=== PATIENT | male | born 1955 | race Caucasian/White ===

== ENCOUNTER 2023-06-13 11:26 | Inpatient (IN) | payer MEDICARE, OTHER ==
[~2023-06-13] VITALS: Ht 188 cm; Wt 73.0 kg
[2023-06-13] MEDS ORDERED: ONDANSETRON HCL/PF 4 MG/2 ML VIAL ONE (11:42)
[2023-06-13] MEDS ORDERED: ONDANSETRON HCL/PF 4 MG/2 ML VIAL IVP ONE (12:00)
[2023-06-13] MEDS ORDERED: IV NS 0.9% 1,000 ML BAG IV ONE (12:00)
[2023-06-13 12:02] LABS: BASOPHILS % (AUTO) 0.5 % (0.0-2.0); EOSINOPHILS # (AUTO) 0.1 K/uL (0.0-0.7); EOSINOPHILS % (AUTO) 0.8 % (0.0-6.0); HEMATOCRIT 40 % (39-51); HEMOGLOBIN 13.4 g/dL (13.5-17.5); LYMPHOCYTES # (AUTO) 0.9 K/uL (0.8-4.8); LYMPHOCYTES % (AUTO) 11.5 % (20.0-44.0); MEAN CORPUSCULAR HEMOGLOBIN 30 PG (26.0-33.0); MEAN CORPUSCULAR HGB CONC 34 g/dl (31.0-36.0); MEAN CORPUSCULAR VOLUME 90 fL (80-96); MONOCYTES # (AUTO) 0.7 K/uL (0.1-1.30); MONOCYTES % (AUTO) 8.5 % (2.0-12.0); NEUTROPHILS # (AUTO) 6.3 K/uL (1.8-8.9); NEUTROPHILS % (AUTO) 78.7 % (43.0-81.0); PLATELET COUNT (AUTO) 326 K/uL (150-450); RED BLOOD CELL COUNT(AUTO) 4.45 MIL/uL (4.5-6.0); RED CELL DISTRIBUTION WIDTH 14.3 % (11.5-15.0)
[2023-06-13] MEDS ORDERED: PANT40TA2 PO (12:07)
[2023-06-13] MEDS ORDERED: ONDA4TAB5 PO (12:07)
[2023-06-13] MEDS ORDERED: BISA10SU11 RC (12:07)
[2023-06-13] MEDS ORDERED: ASPI-1169 PO (12:07)
[2023-06-13] MEDS ORDERED: CHOL100043 PO (12:07)
[2023-06-13] MEDS ORDERED: LEVO75TA7 PO (12:07)
[2023-06-13] MEDS ORDERED: OMEG1CAP40 PO (12:07)
[2023-06-13] MEDS ORDERED: MEGE400O4 PO (12:07)
[2023-06-13 12:12] LABS: CALCIUM, SERUM 9.4 mg/dL (8.5-10.1); CREATININE 1.1 mg/dL (0.6-1.3); POTASSIUM 3.9 mmol/L (3.5-5.1)
[2023-06-13 12:17] LABS: INR 1.09 (0.91-1.10); PARTIAL THROMBOPLASTIN TIME 28.7 SEC (24.3-34.3); PROTHROMBIN TIME 11.5 SECS (9.2-11.1)
[2023-06-13 12:21] LABS: ALBUMIN 3.6 g/dL (3.4-5.0); BILIRUBIN,DIRECT 0.3 mg/dL (0.0-0.2); TOTAL PROTEIN, SERUM 8.5 g/dL (6.4-8.2)
[2023-06-13] MEDS ORDERED: IV NS 0.9% 250 ML IV ONE (13:33)
[2023-06-13] MEDS ORDERED: CT SWABBABLE VALVE TRANS SET 1 EA INFUS.SET MC ONE (13:33)
[2023-06-13] MEDS ORDERED: IOHEXOL-300 100 ML VIAL IV ONE (13:33)
[2023-06-13] MEDS ORDERED: ACETAMINOPHEN 325 MG TABLET PO PRN (15:00)
[2023-06-13] MEDS ORDERED: ONDANSETRON HCL/PF 4 MG/2 ML VIAL IVP PRN (15:00)
[2023-06-13 16:00] VITALS: BP 98/57; TEMP 98.8; O2SAT 99
[2023-06-13 16:16] LABS: APPEARANCE,URINE CLEAR (CLEAR); BILIRUBIN,URINE 1+ (NEGATIVE); BLOOD, URINE TRACE-INTA Ery/uL (NEGATIVE); COLOR,URINE YELLOW (YELLOW); KETONES,URINE 2+ mg/dL (NEGATIVE); LEUKOCYTE ESTERASE ,URINE NEGATIVE (NEGATIVE); NITRITE, URINE NEGATIVE (NEGATIVE); PROTEIN,URINE NEGATIVE (NEGATIVE); UGLUCOSE NEGATIVE (NEGATIVE)
[2023-06-13 16:30] LABS: ADD URINE CULTURE NO; BACTERIA,URINE None seen /HPF (None Seen); SQUAMOUS EPITHELIAL CELL,UR 0-2 /HPF (None Seen); WBC,URINE 0-2 /HPF (0-3)
[2023-06-13] MEDS: IV D5/0.45 NACL 1,000 ML IV PRN (18:07)
[2023-06-13 20:00] VITALS: BP 108/58; TEMP 97.8; O2SAT 96
[2023-06-14 05:47] LABS: BASOPHILS % (AUTO) 0.7 % (0.0-2.0); EOSINOPHILS # (AUTO) 0.3 K/uL (0.0-0.7); EOSINOPHILS % (AUTO) 4.8 % (0.0-6.0); HEMATOCRIT 35 % (39-51); LYMPHOCYTES % (AUTO) 19.8 % (20.0-44.0); MEAN CORPUSCULAR HEMOGLOBIN 30 PG (26.0-33.0); MEAN CORPUSCULAR HGB CONC 34 g/dl (31.0-36.0); MEAN CORPUSCULAR VOLUME 89 fL (80-96); MONOCYTES # (AUTO) 0.7 K/uL (0.1-1.30); MONOCYTES % (AUTO) 13.6 % (2.0-12.0); NEUTROPHILS # (AUTO) 3.2 K/uL (1.8-8.9); NEUTROPHILS % (AUTO) 61.1 % (43.0-81.0); PLATELET COUNT (AUTO) 276 K/uL (150-450); RED BLOOD CELL COUNT(AUTO) 3.96 MIL/uL (4.5-6.0); RED CELL DISTRIBUTION WIDTH 14.2 % (11.5-15.0); WHITE BLOOD COUNT (AUTO) 5.2 K/uL (4.3-11.0)
[2023-06-14 07:40] LABS: CALCIUM, SERUM 8.8 mg/dL (8.5-10.1); CREATININE 0.8 mg/dL (0.6-1.3); MAGNESIUM 2.5 mg/dL (1.8-2.4); PHOSPHORUS 3.8 mg/dL (2.5-4.9); POTASSIUM 3.7 mmol/L (3.5-5.1)
[2023-06-14 08:00] VITALS: BP 97/60; TEMP 98.6; O2SAT 100
[2023-06-14] MEDS: PANTOPRAZOLE 40 MG VIAL IV SCH ×2 (08:59→09:01)
[2023-06-14 16:00] VITALS: BP 106/62; TEMP 97.6; O2SAT 94
[2023-06-14] MEDS ORDERED: SUCRALFATE 1 G/10 ML UDC GT SCH (17:30)
[2023-06-14 20:00] VITALS: BP 103/57; TEMP 97.7; O2SAT 100
[2023-06-14] MEDS: SUCRALFATE 1 G/10 ML UDC PO SCH (21:18)
[2023-06-15] VITALS: BP 91/61; TEMP 98.8; O2SAT 100
[2023-06-15 04:00] VITALS: BP 115/61; TEMP 98.8; O2SAT 100
[2023-06-15] MEDS: IV D5/0.45 NACL 1,000 ML IV PRN ×2 (04:33→21:43)
[2023-06-15 06:41] LABS: BASOPHILS % (AUTO) 0.7 % (0.0-2.0); EOSINOPHILS # (AUTO) 0.3 K/uL (0.0-0.7); HEMATOCRIT 34 % (39-51); HEMOGLOBIN 11.6 g/dL (13.5-17.5); LYMPHOCYTES % (AUTO) 17.1 % (20.0-44.0); MEAN CORPUSCULAR HEMOGLOBIN 31 PG (26.0-33.0); MEAN CORPUSCULAR HGB CONC 34 g/dl (31.0-36.0); MEAN CORPUSCULAR VOLUME 89 fL (80-96); MONOCYTES # (AUTO) 0.6 K/uL (0.1-1.30); MONOCYTES % (AUTO) 11.5 % (2.0-12.0); NEUTROPHILS # (AUTO) 3.7 K/uL (1.8-8.9); NEUTROPHILS % (AUTO) 65.7 % (43.0-81.0); PLATELET COUNT (AUTO) 257 K/uL (150-450); RED BLOOD CELL COUNT(AUTO) 3.79 MIL/uL (4.5-6.0); RED CELL DISTRIBUTION WIDTH 14.1 % (11.5-15.0); WHITE BLOOD COUNT (AUTO) 5.6 K/uL (4.3-11.0)
[2023-06-15 06:49] LABS: ALBUMIN 2.7 g/dL (3.4-5.0); BILIRUBIN,TOTAL 0.8 mg/dL (0.2-1.0); CALCIUM, SERUM 8.5 mg/dL (8.5-10.1); CREATININE 0.7 mg/dL (0.6-1.3); MAGNESIUM 2.2 mg/dL (1.8-2.4); PHOSPHORUS 3.1 mg/dL (2.5-4.9); POTASSIUM 3.6 mmol/L (3.5-5.1); TOTAL PROTEIN, SERUM 6.7 g/dL (6.4-8.2)
[2023-06-15 07:30] VITALS: BP 102/65; TEMP 98.4; O2SAT 97
[2023-06-15] MEDS: SUCRALFATE 1 G/10 ML UDC PO SCH ×4 (08:31→21:43)
[2023-06-15] MEDS: PANTOPRAZOLE 40 MG VIAL IV SCH (08:31)
[2023-06-15] MEDS ORDERED: PANTOPRAZOLE 40 MG/PACK PACK GT SCH (09:00)
[2023-06-15] MEDS: PANTOPRAZOLE 40 MG/PACK PACK PO SCH (09:00)
[2023-06-15] MEDS ORDERED: BISACODYL SUPP (10 MG) 10 MG/SUPP.RECT SUPP.RECT RC PRN (13:00)
[2023-06-15 16:00] VITALS: BP 139/60; TEMP 99; O2SAT 100
[2023-06-15 20:00] VITALS: BP 103/53; TEMP 98.2; O2SAT 98
[2023-06-16] VITALS: BP 112/83; TEMP 98.4; O2SAT 98
[2023-06-16 04:00] VITALS: BP 104/58; TEMP 98.1; O2SAT 97
[2023-06-16 06:03] LABS: BASOPHILS % (AUTO) 0.7 % (0.0-2.0); EOSINOPHILS # (AUTO) 0.3 K/uL (0.0-0.7); EOSINOPHILS % (AUTO) 6.5 % (0.0-6.0); HEMATOCRIT 33 % (39-51); HEMOGLOBIN 11.5 g/dL (13.5-17.5); LYMPHOCYTES # (AUTO) 0.8 K/uL (0.8-4.8); LYMPHOCYTES % (AUTO) 18.4 % (20.0-44.0); MEAN CORPUSCULAR HEMOGLOBIN 31 PG (26.0-33.0); MEAN CORPUSCULAR HGB CONC 35 g/dl (31.0-36.0); MEAN CORPUSCULAR VOLUME 88 fL (80-96); MONOCYTES # (AUTO) 0.6 K/uL (0.1-1.30); MONOCYTES % (AUTO) 13.7 % (2.0-12.0); NEUTROPHILS # (AUTO) 2.5 K/uL (1.8-8.9); NEUTROPHILS % (AUTO) 60.7 % (43.0-81.0); PLATELET COUNT (AUTO) 256 K/uL (150-450); RED BLOOD CELL COUNT(AUTO) 3.76 MIL/uL (4.5-6.0); RED CELL DISTRIBUTION WIDTH 14.2 % (11.5-15.0); WHITE BLOOD COUNT (AUTO) 4.2 K/uL (4.3-11.0)
[2023-06-16 06:44] LABS: CALCIUM, SERUM 8.5 mg/dL (8.5-10.1); CREATININE 0.7 mg/dL (0.6-1.3); MAGNESIUM 2.2 mg/dL (1.8-2.4); PHOSPHORUS 3.3 mg/dL (2.5-4.9); POTASSIUM 3.6 mmol/L (3.5-5.1)
[2023-06-16 07:00] VITALS: BP 96/55; TEMP 97.5; O2SAT 99
[2023-06-16] MEDS ORDERED: LEVOTHYROXINE SODIUM 75 MCG TABLET PO SCH (07:30)
[2023-06-16] MEDS: PANTOPRAZOLE 40 MG/PACK PACK PO SCH (08:28)
[2023-06-16] MEDS: SUCRALFATE 1 G/10 ML UDC PO SCH ×2 (08:28→12:56)
[2023-06-16] MEDS ORDERED: CHOLECALCIFEROL 1,000 UNIT TABLET (VIT D3) PO SCH (09:00)
[2023-06-16] MEDS ORDERED: ASPIRIN 81 MG TAB.CHEW PO SCH (09:00)
[2023-06-16] MEDS ORDERED: Medication Not On Formulary EA (Omega-3 Fatty Acids/Fish Oil (Omega 3 1,000 Mg Softgel) PO SCH (09:00)
[2023-06-16] MEDS ORDERED: MEGESTROL ACETATE SUSP 400 MG/10 ML UDC PO SCH (09:00)
[2023-06-16] MEDS ORDERED: SUCR1ORA6 PO (12:43)
== END 2023-06-16 16:30 | DRG 392 ==
LOC: ER 11:40 → MED 14:56 → TELE 06-14 13:33 → MED 06-16 10:54
PROVIDERS: ATTEND Student in an Organized Health Care Education/Training Program
PROC: 0DB58ZX Excision of Esophagus, Via Natural or Artificial Opening Endoscopic, Diagnostic (ICD-10-PCS; principal; 2023-06-14)
DX: K20.90 Esophagitis, unspecified without bleeding (principal); F02.A3 Dementia in other diseases classified elsewhere, mild, with mood disturbance; Z20.822 Contact with and (suspected) exposure to COVID-19; G30.9 Alzheimer's disease, unspecified; F31.9 Bipolar disorder, unspecified; F25.9 Schizoaffective disorder, unspecified; Z85.820 Personal history of malignant melanoma of skin; Z79.890 Hormone replacement therapy; Z79.82 Long term (current) use of aspirin; Z79.899 Other long term (current) drug therapy; Z98.890 Other specified postprocedural states; R79.89 Other specified abnormal findings of blood chemistry; K57.90 Diverticulosis of intestine, part unspecified, without perforation or abscess without bleeding; I10 Essential (primary) hypertension; E11.9 Type 2 diabetes mellitus without complications; K44.9 Diaphragmatic hernia without obstruction or gangrene; K82.8 Other specified diseases of gallbladder; K29.70 Gastritis, unspecified, without bleeding; R13.10 Dysphagia, unspecified
CPT/HCPCS: 36415; 71260-TC; 80048-TC; 80053-TC; 80076-TC; 81001; 83605-TC; 83690-TC; 83735-TC; 84100-TC; 85025-TC; 85730-TC; 87081-TC; 88305-TC; 88313-TC; C9113; C9803; G0378; J2405; J2704; J3490; J7030; J7050; Q9967

== ENCOUNTER 2023-07-21 15:53 | Emergency (ER) | payer MEDICARE, OTHER ==
[~2023-07-21] VITALS: Ht 188 cm; Wt 83.5 kg
[~2023-07-21 15:53] MED LIST: ASPI-1169 PO; BISA10SU11 RC; CHOL100043 PO; LEVO75TA7 PO; MEGE400O4 PO; OMEG1CAP40 PO; ONDA4TAB5 PO; PANT40TA2 PO; SUCR1ORA6 PO
[2023-07-21] MEDS ORDERED: FAMOTIDINE/PF INJ 20 MG/2 ML VIAL IV ONE ×2 (16:30→16:51)
[2023-07-21] MEDS ORDERED: MORPHINE SULFATE INJ 2 MG/ML DISP.SYRIN IV ONE (16:30)
[2023-07-21] MEDS ORDERED: ONDANSETRON HCL/PF 4 MG/2 ML VIAL IV ONE (16:30)
[2023-07-21 16:46] LABS: BASOPHILS # (AUTO) 0.1 K/uL (0.0-0.2); BASOPHILS % (AUTO) 0.7 % (0.0-2.0); EOSINOPHILS # (AUTO) 0.2 K/uL (0.0-0.7); HEMATOCRIT 35 % (39-51); HEMOGLOBIN 11.9 g/dL (13.5-17.5); LYMPHOCYTES # (AUTO) 0.9 K/uL (0.8-4.8); LYMPHOCYTES % (AUTO) 11.7 % (20.0-44.0); MEAN CORPUSCULAR HEMOGLOBIN 30 PG (26.0-33.0); MEAN CORPUSCULAR HGB CONC 34 g/dl (31.0-36.0); MEAN CORPUSCULAR VOLUME 88 fL (80-96); MONOCYTES # (AUTO) 0.9 K/uL (0.1-1.30); MONOCYTES % (AUTO) 11.1 % (2.0-12.0); NEUTROPHILS # (AUTO) 5.8 K/uL (1.8-8.9); NEUTROPHILS % (AUTO) 73.5 % (43.0-81.0); PLATELET COUNT (AUTO) 507 K/uL (150-450); RED BLOOD CELL COUNT(AUTO) 3.95 MIL/uL (4.5-6.0); RED CELL DISTRIBUTION WIDTH 14.1 % (11.5-15.0); WHITE BLOOD COUNT (AUTO) 7.9 K/uL (4.3-11.0)
[2023-07-21] MEDS ORDERED: ONDANSETRON HCL/PF 4 MG/2 ML VIAL ONE (16:50)
[2023-07-21] MEDS ORDERED: MORPHINE SULFATE INJ 4 MG/ML DISP.SYRIN ONE (16:51)
[2023-07-21 17:10] LABS: ALANINE AMINOTRANSFERASE 44 U/L (12-78); ALKALINE PHOSPHATASE 79 U/L (46-116); ASPARTATE AMINOTRANSFERASE 29 U/L (15-37); BILIRUBIN,DIRECT 0.3 mg/dL (0.0-0.2); BILIRUBIN,TOTAL 0.6 mg/dL (0.2-1.0); CALCIUM, SERUM 9.7 mg/dL (8.5-10.1); CARBON DIOXIDE 21 mmol/L (21-32); CHLORIDE 103 mmol/L (98-107); GLUCOSE 94 mg/dL (74-106); LIPASE 23 U/L (16-77); POTASSIUM 3.3 mmol/L (3.5-5.1); SODIUM SERUM 139 mmol/L (136-145); TOTAL PROTEIN, SERUM 8.6 g/dL (6.4-8.2); UREA NITROGEN, BLOOD 22 mg/dL (7-18)
[2023-07-21 18:35] LABS: APPEARANCE,URINE SLIGHTLY CLOUDY (CLEAR); BILIRUBIN,URINE 2+ (NEGATIVE); BLOOD, URINE TRACE-INTA Ery/uL (NEGATIVE); COLOR,URINE YELLOW (YELLOW); KETONES,URINE 1+ mg/dL (NEGATIVE); LEUKOCYTE ESTERASE ,URINE NEGATIVE (NEGATIVE); NITRITE, URINE NEGATIVE (NEGATIVE); PH,URINE 5.5 (5.0-8.0); PROTEIN,URINE 2+ mg/dl (NEGATIVE); UGLUCOSE NEGATIVE (NEGATIVE)
[2023-07-21 18:46] LABS: ADD URINE CULTURE NO; BACTERIA,URINE Few /HPF (None Seen); SQUAMOUS EPITHELIAL CELL,UR Few /HPF (None Seen); URINE AMORPHOUS URATE Few /HPF (None Seen); WBC,URINE 0-2 /HPF (0-3)
[2023-07-21 22:05] VITALS: BP 128/70; TEMP 98.4; O2SAT 99
== END 2023-07-21 20:00 | disposition home or self-care (01) ==
LOC: ER 15:54
DX: K44.9 Diaphragmatic hernia without obstruction or gangrene (principal); R11.2 Nausea with vomiting, unspecified; F03.90 Unspecified dementia, unspecified severity, without behavioral disturbance, psychotic disturbance, mood disturbance, and anxiety; E11.9 Type 2 diabetes mellitus without complications; Z79.899 Other long term (current) drug therapy
CPT/HCPCS: 99285; 74176; 96374; 71045; 96375; 93005; 85025; 80048; 87086; 83690; 80076; 81001; 36415; 84484; J2270; J3490; J2405

== ENCOUNTER 2023-07-23 18:35 | Inpatient (IN) | payer MEDICARE, OTHER ==
[~2023-07-23] VITALS: Ht 188 cm; Wt 64.9 kg
[2023-07-23 19:24] LABS: BASOPHILS % (AUTO) 0.3 % (0.0-2.0); EOSINOPHILS % (AUTO) 0.2 % (0.0-6.0); HEMATOCRIT 37 % (39-51); HEMOGLOBIN 12.3 g/dL (13.5-17.5); LYMPHOCYTES # (AUTO) 0.6 K/uL (0.8-4.8); MEAN CORPUSCULAR HEMOGLOBIN 30 PG (26.0-33.0); MEAN CORPUSCULAR HGB CONC 34 g/dl (31.0-36.0); MEAN CORPUSCULAR VOLUME 89 fL (80-96); MONOCYTES # (AUTO) 0.9 K/uL (0.1-1.30); MONOCYTES % (AUTO) 7.2 % (2.0-12.0); NEUTROPHILS # (AUTO) 10.6 K/uL (1.8-8.9); NEUTROPHILS % (AUTO) 87.3 % (43.0-81.0); PLATELET COUNT (AUTO) 514 K/uL (150-450); RED BLOOD CELL COUNT(AUTO) 4.14 MIL/uL (4.5-6.0); RED CELL DISTRIBUTION WIDTH 13.8 % (11.5-15.0); WHITE BLOOD COUNT (AUTO) 12.1 K/uL (4.3-11.0)
[2023-07-23] MEDS ORDERED: ONDANSETRON HCL/PF 4 MG/2 ML VIAL ONE (19:28)
[2023-07-23] MEDS ORDERED: PANTOPRAZOLE 40 MG VIAL ONE (19:28)
[2023-07-23] MEDS ORDERED: METOCLOPRAMIDE HCL 10 MG/2 ML VIAL ONE (19:28)
[2023-07-23] MEDS ORDERED: IV NS 0.9% 1,000 ML BAG IV ONE (19:30)
[2023-07-23] MEDS ORDERED: ONDANSETRON HCL/PF 4 MG/2 ML VIAL IVP ONE (19:30)
[2023-07-23] MEDS ORDERED: METOCLOPRAMIDE HCL 10 MG/2 ML VIAL IV ONE (19:30)
[2023-07-23] MEDS ORDERED: PANTOPRAZOLE 40 MG VIAL IV ONE (19:30)
[2023-07-23 20:41] LABS: CREATININE 1.2 mg/dL (0.6-1.3); POTASSIUM 3.3 mmol/L (3.5-5.1)
[2023-07-23 20:46] LABS: ALBUMIN 3.3 g/dL (3.4-5.0); BILIRUBIN,DIRECT 0.5 mg/dL (0.0-0.2); BILIRUBIN,TOTAL 0.9 mg/dL (0.2-1.0); TOTAL PROTEIN, SERUM 9.2 g/dL (6.4-8.2)
[2023-07-23 21:17] LABS: APPEARANCE,URINE CLEAR (CLEAR); BILIRUBIN,URINE 2+ (NEGATIVE); BLOOD, URINE NEGATIVE Ery/uL (NEGATIVE); COLOR,URINE YELLOW (YELLOW); KETONES,URINE 3+ mg/dL (NEGATIVE); LEUKOCYTE ESTERASE ,URINE NEGATIVE (NEGATIVE); NITRITE, URINE NEGATIVE (NEGATIVE); PH,URINE 5.5 (5.0-8.0); PROTEIN,URINE 2+ mg/dl (NEGATIVE); UGLUCOSE NEGATIVE (NEGATIVE)
[2023-07-23 21:27] LABS: ADD URINE CULTURE NO; BACTERIA,URINE RARE /HPF (None Seen); MUCUS,URINE Many /LPF (None Seen); RBC,URINE 0-2 /HPF (0-2); WBC,URINE 0-2 /HPF (0-3)
[2023-07-23 22:15] VITALS: BP 117/76; TEMP 98.1; O2SAT 99
[2023-07-23] MEDS ORDERED: ONDANSETRON HCL/PF 4 MG/2 ML VIAL IVP PRN (22:30)
[2023-07-23] MEDS ORDERED: ACETAMINOPHEN 325 MG TABLET PO PRN (22:30)
[2023-07-23] MEDS ORDERED: MAGNESIUM HYDROXIDE 30 ML UDC PO PRN (22:30)
[2023-07-23] MEDS ORDERED: MAG HYDROX/AL HYDROX/SIMETH 30 ML UDC PO PRN (22:30)
[2023-07-23] MEDS ORDERED: Z GUARD REMEDY 4 OZ OINT TP PRN (22:30)
[2023-07-23] MEDS: IV NS 0.9% 1,000 ML IV PRN (22:45)
[2023-07-23 23:29] VITALS: BP 117/76; TEMP 98.1; O2SAT 99
[2023-07-24] MEDS ORDERED: POTASSIUM CHLORIDE 20 MEQ TAB.PRT.SR PO ONE (00:30)
[2023-07-24 05:55] LABS: BASOPHILS % (AUTO) 0.1 % (0.0-2.0); EOSINOPHILS % (AUTO) 0.2 % (0.0-6.0); HEMATOCRIT 31 % (39-51); HEMOGLOBIN 10.4 g/dL (13.5-17.5); LYMPHOCYTES # (AUTO) 0.8 K/uL (0.8-4.8); MEAN CORPUSCULAR HEMOGLOBIN 30 PG (26.0-33.0); MEAN CORPUSCULAR HGB CONC 34 g/dl (31.0-36.0); MEAN CORPUSCULAR VOLUME 88 fL (80-96); MONOCYTES % (AUTO) 8.7 % (2.0-12.0); NEUTROPHILS # (AUTO) 9.8 K/uL (1.8-8.9); PLATELET COUNT (AUTO) 398 K/uL (150-450); RED BLOOD CELL COUNT(AUTO) 3.47 MIL/uL (4.5-6.0); RED CELL DISTRIBUTION WIDTH 13.9 % (11.5-15.0); WHITE BLOOD COUNT (AUTO) 11.7 K/uL (4.3-11.0)
[2023-07-24 06:32] LABS: CALCIUM, SERUM 8.6 mg/dL (8.5-10.1); CREATININE 0.9 mg/dL (0.6-1.3); MAGNESIUM 2.3 mg/dL (1.8-2.4); PHOSPHORUS 3.6 mg/dL (2.5-4.9)
[2023-07-24] MEDS: PANTOPRAZOLE 40 MG TABLET.DR PO SCH (07:48)
[2023-07-24] MEDS: LEVOTHYROXINE SODIUM 75 MCG TABLET PO SCH (07:48)
[2023-07-24 08:00] VITALS: BP 127/75; TEMP 98; O2SAT 94
[2023-07-24 15:51] LABS: CREATININE, URINE 182.6 MG/DL (30.0-125.0); URINE TOTAL PROTEIN 49.9 mg/dL (0-11.9)
[2023-07-24 16:01] VITALS: BP 96/66; TEMP 97.9; O2SAT 98
[2023-07-24 22:35] VITALS: BP 98/56; TEMP 98.1; O2SAT 95
[2023-07-24] MEDS: IV NS 0.9% 1,000 ML IV PRN (23:14)
[2023-07-25 06:46] LABS: ALBUMIN 2.3 g/dL (3.4-5.0); BILIRUBIN,TOTAL 0.9 mg/dL (0.2-1.0); CALCIUM, SERUM 8.7 mg/dL (8.5-10.1); CREATININE 0.9 mg/dL (0.6-1.3); MAGNESIUM 2.1 mg/dL (1.8-2.4); PHOSPHORUS 3.3 mg/dL (2.5-4.9); POTASSIUM 3.6 mmol/L (3.5-5.1); TOTAL PROTEIN, SERUM 7.4 g/dL (6.4-8.2)
[2023-07-25 07:00] VITALS: BP 97/68; TEMP 99.1; O2SAT 98
[2023-07-25 07:02] LABS: THYROID STIMULATING HORMONE 0.495 uIU/mL (0.358-3.74)
[2023-07-25] MEDS: PANTOPRAZOLE 40 MG TABLET.DR PO SCH (07:55)
[2023-07-25] MEDS: LEVOTHYROXINE SODIUM 75 MCG TABLET PO SCH (07:55)
[2023-07-25] MEDS ORDERED: IV NS 0.9% 250 ML IV ONE (09:36)
[2023-07-25] MEDS ORDERED: CT SWABBABLE VALVE TRANS SET 1 EA INFUS.SET MC ONE (09:36)
[2023-07-25] MEDS ORDERED: IOHEXOL-300 100 ML VIAL IV ONE (09:36)
[2023-07-25] MEDS: IV NS 0.9% 1,000 ML IV PRN (14:13)
[2023-07-25 16:00] VITALS: BP 98/60; TEMP 98.4; O2SAT 95
[2023-07-25 20:00] VITALS: BP 111/69; TEMP 98.3; O2SAT 100
[2023-07-25 21:06] LABS: BASOPHILS % (AUTO) 0.4 % (0.0-2.0); EOSINOPHILS # (AUTO) 0.3 K/uL (0.0-0.7); EOSINOPHILS % (AUTO) 5.4 % (0.0-6.0); HEMATOCRIT 28 % (39-51); HEMOGLOBIN 9.4 g/dL (13.5-17.5); LYMPHOCYTES # (AUTO) 0.9 K/uL (0.8-4.8); LYMPHOCYTES % (AUTO) 17.2 % (20.0-44.0); MEAN CORPUSCULAR HEMOGLOBIN 30 PG (26.0-33.0); MEAN CORPUSCULAR HGB CONC 34 g/dl (31.0-36.0); MEAN CORPUSCULAR VOLUME 87 fL (80-96); MONOCYTES # (AUTO) 0.6 K/uL (0.1-1.30); NEUTROPHILS # (AUTO) 3.5 K/uL (1.8-8.9); PLATELET COUNT (AUTO) 324 K/uL (150-450); RED BLOOD CELL COUNT(AUTO) 3.15 MIL/uL (4.5-6.0); RED CELL DISTRIBUTION WIDTH 13.7 % (11.5-15.0); WHITE BLOOD COUNT (AUTO) 5.2 K/uL (4.3-11.0)
[2023-07-25 21:30] LABS: IRON, SERUM 45 ug/dl (50-175); TOTAL IRON BINDING CAPACITY 152 ug/dl (250-450)
[2023-07-26] MEDS: IV NS 0.9% 1,000 ML IV PRN (02:03)
[2023-07-26 07:00] VITALS: BP 101/58; TEMP 98.4; O2SAT 96
[2023-07-26] MEDS: LEVOTHYROXINE SODIUM 75 MCG TABLET PO SCH (08:18)
[2023-07-26] MEDS: PANTOPRAZOLE 40 MG TABLET.DR PO SCH (08:18)
[2023-07-26] MEDS ORDERED: FERROUS SULFATE (325 MG) 325 MG/TAB TABLET PO SCH (13:00)
[2023-07-27 07:07] LABS: IMMUNOGLOBULIN A, SERUM 434 mg/dL (61-437); IMMUNOGLOBULIN G, SERUM 1102 mg/dL (603-1613); IMMUNOGLOBULIN M, SERUM 70 mg/dL (20-172)
[2023-07-27 10:07] LABS: *SPE A/G RATIO 0.7 (0.7-1.7); *SPE ALBUMIN 2.3 g/dL (2.9-4.4); *SPE ALPHA-1-GLOBULIN 0.3 g/dL (0.0-0.4); *SPE ALPHA-2-GLOBULIN 0.9 g/dL (0.4-1.0); *SPE GLOBULIN, TOTAL 3.3 g/dL (2.2-3.9); *SPE M-SPIKE Not Observed g/dL (Not Observed); *SPE PROTEIN TOTAL 5.6 g/dL (6.0-8.5); *SPEGAMMA GLOBULIN 1.1 g/dL (0.4-1.8)
[2023-07-27 11:07] LABS: FREE KAPPA LT CHAINS SERUM 64.1 mg/L (3.3-19.4); FREE LAMBDA LT CHAIN SERUM 41.7 mg/L (5.7-26.3); KAPPA/LAMBDA RATIO SERUM 1.54 (0.26-1.65)
== END 2023-07-26 15:05 | DRG 640 ==
LOC: ER 18:47 → MED 21:10
PROVIDERS: ADMIT Internal Medicine; ATTEND Nurse Practitioner Acute Care
DX: R62.7 Adult failure to thrive (principal); G93.41 Metabolic encephalopathy; N17.9 Acute kidney failure, unspecified; C15.9 Malignant neoplasm of esophagus, unspecified; R65.10 Systemic inflammatory response syndrome (SIRS) of non-infectious origin without acute organ dysfunction; F02.80 Dementia in other diseases classified elsewhere, unspecified severity, without behavioral disturbance, psychotic disturbance, mood disturbance, and anxiety; G30.9 Alzheimer's disease, unspecified; Z85.01 Personal history of malignant neoplasm of esophagus; Z85.828 Personal history of other malignant neoplasm of skin; Z79.890 Hormone replacement therapy; Z79.82 Long term (current) use of aspirin; Z79.899 Other long term (current) drug therapy; R13.10 Dysphagia, unspecified; D72.829 Elevated white blood cell count, unspecified; E03.9 Hypothyroidism, unspecified; D50.9 Iron deficiency anemia, unspecified; E11.9 Type 2 diabetes mellitus without complications; E86.9 Volume depletion, unspecified; E87.6 Hypokalemia; K57.90 Diverticulosis of intestine, part unspecified, without perforation or abscess without bleeding; K44.9 Diaphragmatic hernia without obstruction or gangrene
CPT/HCPCS: 36415; 71045-TC; 71260-TC; 80048-TC; 80053-TC; 80076-TC; 81001; 82378; 82570-TC; 82607-TC; 82728-TC; 82784; 83540-TC; 83690-TC; 83735-TC; 84100-TC; 84155; 84165; 84300-TC; 84443-TC; 85025-TC; 86334; A4223; C9113; G0378; J2405; J2765; J7030; J7050; Q9967

== ENCOUNTER 2023-07-29 15:21 | Inpatient (IN) | payer MEDICARE, OTHER ==
[~2023-07-29] VITALS: Ht 170.2 cm; Wt 66.2 kg
[~2023-07-29 15:21] MED LIST changes: -MEGE400O4 PO; -SUCR1ORA6 PO
[2023-07-29] MEDS ORDERED: BLOO-668 IN (15:52)
[2023-07-29] MEDS ORDERED: ACET-868 PO (15:52)
[2023-07-29] MEDS ORDERED: GLUC1KIT IM (15:52)
[2023-07-29] MEDS ORDERED: FERR325T28 PO (15:52)
[2023-07-29] MEDS ORDERED: FAMOTIDINE/PF INJ 20 MG/2 ML VIAL IV ONE (16:00)
[2023-07-29] MEDS ORDERED: ONDANSETRON HCL/PF 4 MG/2 ML VIAL IVP ONE (16:00)
[2023-07-29] MEDS ORDERED: ONDANSETRON HCL/PF 4 MG/2 ML VIAL ONE (16:06)
[2023-07-29 16:29] LABS: BASOPHILS % (AUTO) 0.7 % (0.0-2.0); EOSINOPHILS # (AUTO) 0.2 K/uL (0.0-0.7); EOSINOPHILS % (AUTO) 4.1 % (0.0-6.0); HEMATOCRIT 33 % (39-51); HEMOGLOBIN 11.2 g/dL (13.5-17.5); LYMPHOCYTES # (AUTO) 1.1 K/uL (0.8-4.8); LYMPHOCYTES % (AUTO) 22.2 % (20.0-44.0); MEAN CORPUSCULAR HEMOGLOBIN 30 PG (26.0-33.0); MEAN CORPUSCULAR HGB CONC 34 g/dl (31.0-36.0); MEAN CORPUSCULAR VOLUME 87 fL (80-96); MONOCYTES # (AUTO) 0.7 K/uL (0.1-1.30); MONOCYTES % (AUTO) 13.5 % (2.0-12.0); NEUTROPHILS # (AUTO) 2.9 K/uL (1.8-8.9); NEUTROPHILS % (AUTO) 59.5 % (43.0-81.0); PLATELET COUNT (AUTO) 365 K/uL (150-450); RED BLOOD CELL COUNT(AUTO) 3.74 MIL/uL (4.5-6.0); RED CELL DISTRIBUTION WIDTH 13.8 % (11.5-15.0); WHITE BLOOD COUNT (AUTO) 4.9 K/uL (4.3-11.0)
[2023-07-29 16:59] LABS: ALANINE AMINOTRANSFERASE 43 U/L (12-78); ALBUMIN 2.6 g/dL (3.4-5.0); ALKALINE PHOSPHATASE 78 U/L (46-116); ASPARTATE AMINOTRANSFERASE 34 U/L (15-37); BILIRUBIN,DIRECT 0.2 mg/dL (0.0-0.2); BILIRUBIN,TOTAL 0.4 mg/dL (0.2-1.0); CARBON DIOXIDE 25 mmol/L (21-32); CHLORIDE 101 mmol/L (98-107); CREATININE 0.8 mg/dL (0.6-1.3); GLUCOSE 83 mg/dL (74-106); LIPASE 35 U/L (16-77); POTASSIUM 3.1 mmol/L (3.5-5.1); SODIUM SERUM 138 mmol/L (136-145); TOTAL PROTEIN, SERUM 7.4 g/dL (6.4-8.2); UREA NITROGEN, BLOOD 11 mg/dL (7-18)
[2023-07-29] MEDS ORDERED: ONDANSETRON HCL/PF 4 MG/2 ML VIAL IVP PRN (17:00)
[2023-07-29] MEDS ORDERED: MORPHINE SULFATE INJ 2 MG/ML DISP.SYRIN IV PRN (17:00)
[2023-07-29 17:13] LABS: APPEARANCE,URINE CLEAR (CLEAR); BILIRUBIN,URINE 2+ (NEGATIVE); BLOOD, URINE TRACE-INTA Ery/uL (NEGATIVE); COLOR,URINE YELLOW (YELLOW); KETONES,URINE 3+ mg/dL (NEGATIVE); LEUKOCYTE ESTERASE ,URINE NEGATIVE (NEGATIVE); NITRITE, URINE NEGATIVE (NEGATIVE); PH,URINE 5.5 (5.0-8.0); PROTEIN,URINE TRACE mg/dl (NEGATIVE); UGLUCOSE NEGATIVE (NEGATIVE); UROBILINOGEN,URINE >=8.0 EU/dL (0.2)
[2023-07-29 18:07] LABS: WBC,URINE 0-2 /HPF (0-3)
[2023-07-29 18:08] LABS: ADD URINE CULTURE NO; BACTERIA,URINE None seen /HPF (None Seen); MUCUS,URINE Many /LPF (None Seen); SQUAMOUS EPITHELIAL CELL,UR 0-2 /HPF (None Seen)
[2023-07-29 18:54] VITALS: O2SAT 97
[2023-07-29] MEDS: IV D5/0.45 NACL 1,000 ML IV PRN (22:09)
[2023-07-30 07:00] VITALS: BP 95/53; TEMP 98.1; O2SAT 98
[2023-07-30 07:21] LABS: BASOPHILS % (AUTO) 1.1 % (0.0-2.0); EOSINOPHILS # (AUTO) 0.2 K/uL (0.0-0.7); EOSINOPHILS % (AUTO) 5.9 % (0.0-6.0); HEMATOCRIT 31 % (39-51); HEMOGLOBIN 10.7 g/dL (13.5-17.5); LYMPHOCYTES # (AUTO) 0.8 K/uL (0.8-4.8); LYMPHOCYTES % (AUTO) 19.1 % (20.0-44.0); MEAN CORPUSCULAR HEMOGLOBIN 30 PG (26.0-33.0); MEAN CORPUSCULAR HGB CONC 34 g/dl (31.0-36.0); MEAN CORPUSCULAR VOLUME 88 fL (80-96); MONOCYTES # (AUTO) 0.7 K/uL (0.1-1.30); MONOCYTES % (AUTO) 16.2 % (2.0-12.0); NEUTROPHILS # (AUTO) 2.4 K/uL (1.8-8.9); NEUTROPHILS % (AUTO) 57.7 % (43.0-81.0); PLATELET COUNT (AUTO) 329 K/uL (150-450); RED BLOOD CELL COUNT(AUTO) 3.55 MIL/uL (4.5-6.0); RED CELL DISTRIBUTION WIDTH 13.9 % (11.5-15.0); WHITE BLOOD COUNT (AUTO) 4.2 K/uL (4.3-11.0)
[2023-07-30] MEDS: LEVOTHYROXINE SODIUM 75 MCG TABLET PO SCH (07:30)
[2023-07-30 07:45] LABS: CALCIUM, SERUM 8.6 mg/dL (8.5-10.1); CREATININE 0.8 mg/dL (0.6-1.3); MAGNESIUM 1.9 mg/dL (1.8-2.4); PHOSPHORUS 4.4 mg/dL (2.5-4.9); POTASSIUM 3.1 mmol/L (3.5-5.1)
[2023-07-30] MEDS: PANTOPRAZOLE 40 MG VIAL IV SCH (09:45)
[2023-07-30] MEDS: POTASSIUM CL. PREMIX PERIPHER. 50 ML IV SCH ×4 (12:02→14:31)
[2023-07-30] MEDS: IV D5/0.45 NACL 1,000 ML IV PRN (12:02)
[2023-07-30 16:00] VITALS: BP 114/56; TEMP 98.4; O2SAT 99
[2023-07-30 16:05] VITALS: BP 144/88; TEMP 98.4; O2SAT 95
[2023-07-30] MEDS ORDERED: ANESTHESIA TRAY IN PYXIS 1 EA TRAY MC ONE (17:50)
[2023-07-30 20:00] VITALS: BP 110/72; TEMP 98.4; O2SAT 99
[2023-07-31 07:00] VITALS: BP 93/52; TEMP 97.5; O2SAT 97
[2023-07-31 07:31] LABS: BASOPHILS % (AUTO) 0.5 % (0.0-2.0); EOSINOPHILS # (AUTO) 0.2 K/uL (0.0-0.7); EOSINOPHILS % (AUTO) 2.4 % (0.0-6.0); HEMATOCRIT 30 % (39-51); HEMOGLOBIN 10.2 g/dL (13.5-17.5); LYMPHOCYTES # (AUTO) 0.8 K/uL (0.8-4.8); LYMPHOCYTES % (AUTO) 11.8 % (20.0-44.0); MEAN CORPUSCULAR HEMOGLOBIN 30 PG (26.0-33.0); MEAN CORPUSCULAR HGB CONC 34 g/dl (31.0-36.0); MEAN CORPUSCULAR VOLUME 89 fL (80-96); MONOCYTES # (AUTO) 0.8 K/uL (0.1-1.30); MONOCYTES % (AUTO) 11.8 % (2.0-12.0); NEUTROPHILS # (AUTO) 4.8 K/uL (1.8-8.9); NEUTROPHILS % (AUTO) 73.5 % (43.0-81.0); PLATELET COUNT (AUTO) 295 K/uL (150-450); RED BLOOD CELL COUNT(AUTO) 3.35 MIL/uL (4.5-6.0); RED CELL DISTRIBUTION WIDTH 13.6 % (11.5-15.0); WHITE BLOOD COUNT (AUTO) 6.5 K/uL (4.3-11.0)
[2023-07-31] MEDS: LEVOTHYROXINE SODIUM 75 MCG TABLET PO SCH (07:59)
[2023-07-31 08:20] LABS: ALBUMIN 2.3 g/dL (3.4-5.0); BILIRUBIN,TOTAL 0.5 mg/dL (0.2-1.0); CALCIUM, SERUM 8.3 mg/dL (8.5-10.1); CREATININE 0.7 mg/dL (0.6-1.3); MAGNESIUM 1.8 mg/dL (1.8-2.4); PHOSPHORUS 3.4 mg/dL (2.5-4.9); POTASSIUM 3.2 mmol/L (3.5-5.1); TOTAL PROTEIN, SERUM 6.5 g/dL (6.4-8.2)
[2023-07-31] MEDS: PANTOPRAZOLE 40 MG VIAL IV SCH (09:12)
[2023-07-31] MEDS ORDERED: JEVITY 1.2 CAL 1,000 ML BOTTLE GT SCH (15:30)
[2023-07-31 16:09] VITALS: BP 97/59; TEMP 97.6; O2SAT 96
[2023-07-31] MEDS ORDERED: JEVITY 1.2 CAL 1,000 ML BOTTLE GT PRN (17:30)
== END 2023-07-31 17:46 | DRG 376 ==
LOC: ER 15:24 → MED 21:30
PROC: 0DH63UZ Insertion of Feeding Device into Stomach, Percutaneous Approach (ICD-10-PCS; principal; 2023-07-30)
DX: C15.9 Malignant neoplasm of esophagus, unspecified (principal); R13.10 Dysphagia, unspecified; F02.80 Dementia in other diseases classified elsewhere, unspecified severity, without behavioral disturbance, psychotic disturbance, mood disturbance, and anxiety; G30.9 Alzheimer's disease, unspecified; E03.9 Hypothyroidism, unspecified; K29.70 Gastritis, unspecified, without bleeding; Z85.828 Personal history of other malignant neoplasm of skin; Z79.890 Hormone replacement therapy; Z79.899 Other long term (current) drug therapy; Z79.82 Long term (current) use of aspirin; K44.9 Diaphragmatic hernia without obstruction or gangrene; E11.9 Type 2 diabetes mellitus without complications; I10 Essential (primary) hypertension; K57.30 Diverticulosis of large intestine without perforation or abscess without bleeding
CPT/HCPCS: 36415; 43246; 71045-TC; 80048-TC; 80053-TC; 80076-TC; 81001; 83690-TC; 83735-TC; 84100-TC; 84484-TC; 85025-TC; 85730-TC; 86850-TC; A4223; C9113; G0378; J0690; J2405; J2704; J3480; J3490; J7030; J7050

== ENCOUNTER 2023-12-28 09:58 | Inpatient (IN) | payer MEDICARE, OTHER ==
[~2023-12-28] VITALS: Ht 157.5 cm; Wt 68.0 kg
[~2023-12-28 09:58] MED LIST changes: +ACET-868 PO; +BLOO-668 IN; +FERR325T28 GT; +GLUC1KIT IM; +LEVO75TA7 GT; -LEVO75TA7 PO
[2023-12-28] MEDS ORDERED: ONDANSETRON HCL/PF 4 MG/2 ML VIAL ONE (10:27)
[2023-12-28] MEDS ORDERED: MORPHINE SULFATE INJ 4 MG/ML DISP.SYRIN ONE (10:27)
[2023-12-28] MEDS: IV NS 0.9% 1,000 ML BAG IV ONE (10:30)
[2023-12-28] MEDS: ONDANSETRON HCL/PF 4 MG/2 ML VIAL IVP ONE (10:31)
[2023-12-28] MEDS: MORPHINE SULFATE INJ 2 MG/ML DISP.SYRIN IV ONE (10:32)
[2023-12-28 10:40] LABS: BASOPHILS # (AUTO) 0.2 K/uL (0.0-0.2); BASOPHILS % (AUTO) 2.2 % (0.0-2.0); EOSINOPHILS # (AUTO) 0.1 K/uL (0.0-0.7); EOSINOPHILS % (AUTO) 1.2 % (0.0-6.0); HEMATOCRIT 33 % (39-51); HEMOGLOBIN 10.5 g/dL (13.5-17.5); LYMPHOCYTES # (AUTO) 0.8 K/uL (0.8-4.8); LYMPHOCYTES % (AUTO) 6.8 % (20.0-44.0); MEAN CORPUSCULAR HEMOGLOBIN 28 PG (26.0-33.0); MEAN CORPUSCULAR HGB CONC 32 g/dl (31.0-36.0); MEAN CORPUSCULAR VOLUME 87 fL (80-96); MONOCYTES # (AUTO) 0.8 K/uL (0.1-1.30); MONOCYTES % (AUTO) 7.5 % (2.0-12.0); NEUTROPHILS # (AUTO) 9.2 K/uL (1.8-8.9); NEUTROPHILS % (AUTO) 82.3 % (43.0-81.0); PLATELET COUNT (AUTO) 405 K/uL (150-450); RED BLOOD CELL COUNT(AUTO) 3.78 MIL/uL (4.5-6.0); RED CELL DISTRIBUTION WIDTH 17.8 % (11.5-15.0); WHITE BLOOD COUNT (AUTO) 11.2 K/uL (4.3-11.0)
[2023-12-28 10:51] LABS: CALCIUM, SERUM 8.8 mg/dL (8.5-10.1); CREATININE 0.7 mg/dL (0.6-1.3); POTASSIUM 4.7 mmol/L (3.5-5.1)
[2023-12-28 10:54] LABS: INR 1.07 (0.91-1.10); PARTIAL THROMBOPLASTIN TIME 26.6 SEC (24.3-34.3)
[2023-12-28 10:57] LABS: ALBUMIN 2.8 g/dL (3.4-5.0); BILIRUBIN,DIRECT 0.2 mg/dL (0.0-0.2); BILIRUBIN,TOTAL 0.5 mg/dL (0.2-1.0); TOTAL PROTEIN, SERUM 8.4 g/dL (6.4-8.2)
[2023-12-28] MEDS: PANTOPRAZOLE 80 MG in IV NS 0.9% 500 ML IV ONE (11:00)
[2023-12-28 12:15] LABS: BAND % (MANUAL) 4 % (0.0-5.0); EOSINOPHILS % (MANUAL) 4 % (0-4); LYMPHOCYTES % (MANUAL) 10 % (16-48); METAMYELOCYTES % 1 % (0-0); MONOCYTES % (MANUAL) 10 % (0-11.0); NEUTROPHILS % (MANUAL) 71 (42-76)
[2023-12-28 12:16] LABS: PLATELET ESTIMATE ADEQUATE
[2023-12-28] MEDS ORDERED: NA P133E RC (13:33)
[2023-12-28] MEDS ORDERED: BUDE0.5A4 IH (13:33)
[2023-12-28] MEDS ORDERED: OMEP40CA21 GT (13:33)
[2023-12-28] MEDS ORDERED: BLOO-668 IN (13:33)
[2023-12-28] MEDS ORDERED: NUT.237L31 GT (13:33)
[2023-12-28] MEDS ORDERED: CALC355O18 GT (13:33)
[2023-12-28] MEDS ORDERED: IPRA4AER IH (13:33)
[2023-12-28] MEDS ORDERED: MAGN400O6 GT (13:33)
[2023-12-28] MEDS ORDERED: ONDA-97 GT (13:33)
[2023-12-28] MEDS ORDERED: CHOL200059 GT (13:33)
[2023-12-28] MEDS ORDERED: MAG HYDROX/AL HYDROX/SIMETH 30 ML UDC PO PRN (17:30)
[2023-12-28] MEDS ORDERED: MAGNESIUM HYDROXIDE 30 ML UDC PO PRN (17:30)
[2023-12-28] MEDS ORDERED: Z GUARD REMEDY 4 OZ OINT TP PRN (17:30)
[2023-12-28] MEDS ORDERED: ZOLPIDEM TARTRATE 5 MG TABLET PO PRN (17:30)
[2023-12-28] MEDS ORDERED: ACETAMINOPHEN 325 MG TABLET PO PRN (17:30)
[2023-12-28] MEDS ORDERED: ONDANSETRON HCL/PF 4 MG/2 ML VIAL IVP PRN (17:30)
[2023-12-28 18:13] LABS: HEMOGLOBIN 8.9 g/dL (13.5-17.5)
[2023-12-28] MEDS: IV D5/0.45 NACL 1,000 ML IV PRN (18:24)
[2023-12-28] MEDS ORDERED: DEXTROSE 50%-WATER 50 ML DISP.SYRIN IV PRN (19:00)
[2023-12-28 20:00] VITALS: BP 90/59; TEMP 99; O2SAT 90
[2023-12-28 20:42] VITALS: BP 90/59; TEMP 99; O2SAT 90
[2023-12-28] MEDS: BLOOD SUGAR DIAGNOSTIC 1 EACH STRIP IN SCH (23:06)
[2023-12-29 07:17] LABS: BASOPHILS % (AUTO) 0.4 % (0.0-2.0); EOSINOPHILS # (AUTO) 0.2 K/uL (0.0-0.7); HEMATOCRIT 27 % (39-51); HEMOGLOBIN 8.7 g/dL (13.5-17.5); LYMPHOCYTES # (AUTO) 0.7 K/uL (0.8-4.8); LYMPHOCYTES % (AUTO) 6.4 % (20.0-44.0); MEAN CORPUSCULAR HEMOGLOBIN 30 PG (26.0-33.0); MEAN CORPUSCULAR HGB CONC 33 g/dl (31.0-36.0); MEAN CORPUSCULAR VOLUME 90 fL (80-96); MONOCYTES # (AUTO) 1.2 K/uL (0.1-1.30); MONOCYTES % (AUTO) 11.9 % (2.0-12.0); NEUTROPHILS # (AUTO) 8.2 K/uL (1.8-8.9); NEUTROPHILS % (AUTO) 79.3 % (43.0-81.0); PLATELET COUNT (AUTO) 311 K/uL (150-450); RED BLOOD CELL COUNT(AUTO) 2.96 MIL/uL (4.5-6.0); RED CELL DISTRIBUTION WIDTH 17.9 % (11.5-15.0); WHITE BLOOD COUNT (AUTO) 10.3 K/uL (4.3-11.0)
[2023-12-29 08:00] VITALS: BP 98/55; TEMP 98.1; O2SAT 98
[2023-12-29 08:29] LABS: CREATININE 0.5 mg/dL (0.6-1.3); MAGNESIUM 2.4 mg/dL (1.8-2.4); POTASSIUM 4.3 mmol/L (3.5-5.1)
[2023-12-29] MEDS: PANTOPRAZOLE 40 MG VIAL IV SCH (08:51)
[2023-12-29 15:32] LABS: URINE SODIUM, RANDOM 114 mmol/l (40-220)
[2023-12-29 15:54] VITALS: BP 106/60; TEMP 98.6; O2SAT 94
[2023-12-29 20:00] VITALS: BP 94/88; TEMP 97.7; TEMP 99.3; O2SAT 93
[2023-12-29 20:27] LABS: IRON, SERUM 31 ug/dl (50-175); TOTAL IRON BINDING CAPACITY 199 ug/dl (250-450)
[2023-12-29 21:02] LABS: FERRITIN 2236 ng/mL (8-388)
[2023-12-30] MEDS ORDERED: BISACODYL SUPP (10 MG) 10 MG/SUPP.RECT SUPP.RECT RC PRN
[2023-12-30] MEDS ORDERED: ACETAMINOPHEN 325 MG TABLET PO PRN
[2023-12-30 07:21] LABS: BASOPHILS % (AUTO) 0.4 % (0.0-2.0); EOSINOPHILS # (AUTO) 0.1 K/uL (0.0-0.7); HEMATOCRIT 24 % (39-51); HEMOGLOBIN 7.9 g/dL (13.5-17.5); LYMPHOCYTES # (AUTO) 0.6 K/uL (0.8-4.8); LYMPHOCYTES % (AUTO) 6.4 % (20.0-44.0); MEAN CORPUSCULAR HEMOGLOBIN 29 PG (26.0-33.0); MEAN CORPUSCULAR HGB CONC 33 g/dl (31.0-36.0); MEAN CORPUSCULAR VOLUME 89 fL (80-96); MONOCYTES # (AUTO) 1.1 K/uL (0.1-1.30); MONOCYTES % (AUTO) 10.9 % (2.0-12.0); NEUTROPHILS # (AUTO) 7.9 K/uL (1.8-8.9); NEUTROPHILS % (AUTO) 81.3 % (43.0-81.0); PLATELET COUNT (AUTO) 268 K/uL (150-450); RED CELL DISTRIBUTION WIDTH 18.7 % (11.5-15.0); WHITE BLOOD COUNT (AUTO) 9.7 K/uL (4.3-11.0)
[2023-12-30] MEDS: LEVOTHYROXINE SODIUM 75 MCG TABLET GT SCH (07:30)
[2023-12-30 07:58] LABS: CALCIUM, SERUM 7.3 mg/dL (8.5-10.1); CREATININE 0.6 mg/dL (0.6-1.3); MAGNESIUM 2.2 mg/dL (1.8-2.4); PHOSPHORUS 2.3 mg/dL (2.5-4.9); POTASSIUM 3.8 mmol/L (3.5-5.1)
[2023-12-30 08:00] VITALS: BP 115/79; TEMP 99; O2SAT 93
[2023-12-30] MEDS: CHOLECALCIFEROL 1,000 UNIT TABLET (VIT D3) GT SCH (08:15)
[2023-12-30] MEDS: FERROUS SULFATE (325 MG) 325 MG/TAB TABLET GT SCH (08:15)
[2023-12-30 09:24] LABS: THYROID STIMULATING HORMONE 1.753 uIU/mL (0.358-3.74)
[2023-12-30 10:15] VITALS: O2SAT 98
[2023-12-30] MEDS: BUDESONIDE RESPULE INH 0.5 MG/2 ML AMPUL.NEB IH SCH (10:26)
[2023-12-30] MEDS ORDERED: IV NS 0.9% 100 ML IV SCH (10:30)
[2023-12-30] MEDS: IV NS 0.9% 1,000 ML IV PRN (10:41)
[2023-12-30] MEDS: INSULIN REGULAR, HUMAN 100 UNIT/ML 3 ML VIAL SQ PRN (11:35)
[2023-12-30] MEDS ORDERED: IPRATROPIUM NEB FS 0.5 MG/2.5 ML AMPUL.NEB NEB SCH (12:00)
[2023-12-30] MEDS ORDERED: ALBUTEROL FS 2.5 MG/3 ML VIAL.NEB NEB SCH (12:00)
[2023-12-30 13:50] LABS: EOSINOPHILS % (MANUAL) 1 % (0-4); LYMPHOCYTES % (MANUAL) 6 % (16-48); METAMYELOCYTES % 1 % (0-0); MONOCYTES % (MANUAL) 9 % (0-11.0); NEUTROPHILS % (MANUAL) 83 (42-76); PLATELET ESTIMATE ADEQUATE
[2023-12-30 13:51] LABS: ANISOCYTOSIS 1+
[2023-12-30 13:52] LABS: HYPOCHROMASIA 1+; STOMATOCYTES 1+
[2023-12-30 18:07] LABS: OSMOLALITY,URINE 648 mOS/kg (340-1090)
[2023-12-31 09:12] LABS: FOLIC ACID 17.3 ng/mL (>3.0)
== END 2023-12-30 13:30 | disposition short-term general hospital (02) | DRG 375 ==
LOC: ER 10:00 → MED 16:16
PROVIDERS: ADMIT Student in an Organized Health Care Education/Training Program; ATTEND Student in an Organized Health Care Education/Training Program
DX: C15.9 Malignant neoplasm of esophagus, unspecified (principal); C79.51 Secondary malignant neoplasm of bone; E44.0 Moderate protein-calorie malnutrition; E87.1 Hypo-osmolality and hyponatremia; R65.10 Systemic inflammatory response syndrome (SIRS) of non-infectious origin without acute organ dysfunction; K22.2 Esophageal obstruction; F02.80 Dementia in other diseases classified elsewhere, unspecified severity, without behavioral disturbance, psychotic disturbance, mood disturbance, and anxiety; G30.9 Alzheimer's disease, unspecified; E86.0 Dehydration; G89.29 Other chronic pain; K44.9 Diaphragmatic hernia without obstruction or gangrene; E11.9 Type 2 diabetes mellitus without complications; Z85.828 Personal history of other malignant neoplasm of skin; Z79.51 Long term (current) use of inhaled steroids; Z79.890 Hormone replacement therapy; Z79.82 Long term (current) use of aspirin; Z79.899 Other long term (current) drug therapy; Z87.19 Personal history of other diseases of the digestive system; E03.9 Hypothyroidism, unspecified; R79.89 Other specified abnormal findings of blood chemistry; R74.01 Elevation of levels of liver transaminase levels; R62.7 Adult failure to thrive; D72.829 Elevated white blood cell count, unspecified; D50.9 Iron deficiency anemia, unspecified
CPT/HCPCS: 36415; 71045-TC; 80048-TC; 80076-TC; 82378; 82607-TC; 82728-TC; 82962-TC; 83540-TC; 83690-TC; 83735-TC; 83935-TC; 84100-TC; 84300-TC; 84443-TC; 84550-TC; 85025-TC; 85027-TC; 85730-TC; 86850-TC; A4223; C9113; G0378; J1815; J2270; J2405; J3490; J7030; J7040